=== PATIENT | female | born 1995 | race Caucasian/White ===

== ENCOUNTER 2023-11-04 10:07 | Observation (INO) | payer SELFPAY ==
[~2023-11-04] VITALS: Ht 157.5 cm; Wt 89.6 kg
[2023-11-04] VITALS (15 sets, daily range): BP systolic 100–156; BP diastolic 52–87; PULSE 62–120; TEMP 98–98.9
[~2023-11-04 10:07] MED LIST: NEXPLANON68 MG ID; NORCO 325 MG-51 TAB PO; ZOFRAN ODT4 MG PO
[2023-11-04] MEDS ORDERED: NS 1,000 ML IV SCH (10:45)
[2023-11-04] MEDS ORDERED: Ondansetron 4 MG/2 ML VIAL IV PRN ×2 (10:45→16:30)
[2023-11-04] MEDS ORDERED: HYDROmorphone 0.5 MG/0.5 ML SYRINGE IV PRN (10:45)
--- NOTE | 2023-11-04 11:42 | NUR ---
PATIENT BROUGHT TO FLOOR AT APPROXIMATELY 1015. IV TO LEFT AC INT AND FLUSHES WELL. PATIENT REPORTS EMS RIDE WAS "IZAIAH" AND NEEDED PAIN MEDICATION, REPORTS PAIN /. INTAKE PERFORMED. URINE OBTAINED FOR HCG. PATIENT'S MOTHER IN THE ROOM. PATIENT REPORTS SHE HAS BEEN NPO ALL DAY WITH THE EXCEPTION OF SIPS OF WATER IN THE AM. NO FURTHER NEEDS. CALL LIGHT IN REACH.
[2023-11-04] MEDS ORDERED: Potassium Chloride 100 ML IV SCH (12:15)
[2023-11-04] MEDS ORDERED: *Potassium Replacement Protocol MC SCH (12:15)
[2023-11-04] MEDS ORDERED: LR 1,000 ML IV SCH (12:45)
[2023-11-04] MEDS ORDERED: Famotidine 20 MG TAB PO SCH (14:00)
[2023-11-04] MEDS ORDERED: Meclizine 25 MG TAB PO SCH (14:00)
--- NOTE | 2023-11-04 15:44 | NUR ---
PATIENT OFF OF FLOOR FOR SURGERY
[2023-11-04] MEDS ORDERED: fentaNYL 50 MCG/ML 2 ML VIAL ONE ×2 (15:46→16:26)
[2023-11-04] MEDS ORDERED: Rocuronium 50 MG/5 ML Multi-Dose VIAL ONE (15:46)
[2023-11-04] MEDS ORDERED: Lidocaine PF 2% (20 MG/ML) 5 ML VIAL ONE (15:47)
[2023-11-04] MEDS ORDERED: NS 10 ML IV ONE (15:48)
[2023-11-04] MEDS ORDERED: Ondansetron 4 MG/2 ML VIAL ONE (15:48)
[2023-11-04] MEDS ORDERED: dexAMETHasone 10 MG/ML VIAL ONE ×2 (15:48)
[2023-11-04] MEDS ORDERED: Glycopyrrolate 0.2 MG/ML 1 ML VIAL ONE (15:48)
[2023-11-04] MEDS ORDERED: Ketorolac 30 MG/ML VIAL ONE (15:48)
[2023-11-04] MEDS ORDERED: BUPivacaine PF 0.5% w EPI (1:200,000) 10 ML VIAL IJ ONE (16:18)
[2023-11-04] MEDS ORDERED: droPERidol 2.5 MG/ML 2 ML VIAL IV PRN (16:30)
[2023-11-04] MEDS ORDERED: fentaNYL 50 MCG/ML 1 ML SYRINGE/VIAL [PACU/SDC ONLY] IV PRN (16:30)
[2023-11-04] MEDS ORDERED: HYDROmorphone 1 MG/1 ML SYRINGE [PACU/SDC ONLY] IV PRN (16:30)
[2023-11-04] MEDS ORDERED: Iohexol 350 - 100 ML VIAL BILE DUCT ONE (17:07)
--- NOTE | 2023-11-04 18:27 | NUR ---
PATIENT BROUGHT TO FLOOR AT APPROXIMATELY 1815. PATIENT DENIES ANY PAIN. LAPS X3 WITH BANDAIDS. IV FLUIDS INFUSING INTO LEFT AC WITH K+ REPLACING, TWO MORE BAGS TO HANG FOR TONIGHT. PATIENT ON A CLEAR LIQUID DIET FOR TONIGHT AND NPO AFTER MIDNIGHT. NO FURTHER NEEDS. CALL LIGHT IN REACH.
--- NOTE | 2023-11-04 19:00 | NUR ---
RECEIVED CHANGE OF SHIFT REPORT FROM DAY SHIFT NURSE. PATIENT UP INDEPENDENTLY IN ROOM WITH NO REPORTED CONCERNS OR PROBLEMS. IV FLUIDS INFUSING WITH NO PRO BLEMS AND PATIENT ON ROOM AIR.
--- NOTE | 2023-11-04 22:27 | NUR ---
DR GARZA ORDERED FOR "ROUTINE ERCP ORDERS" TO BE ENTERED FOR PATIENT, PROCEDURE TENTATIVELY PLANNED FOR 1400, TO INFORM/GET CONSENT FOR ANESTHESIA AND TO INFORM ENDOSCOPY IN THE AM, MAKE PATIENT NPO AFTER MIDNIGHT.
[2023-11-05] VITALS (15 sets, daily range): BP systolic 110–139; BP diastolic 74–87; PULSE 56–83; TEMP 98–98.5
[2023-11-05] MEDS ORDERED: Potassium Chloride 100 ML IV SCH ×2 (01:45→08:45)
--- NOTE | 2023-11-05 07:30 | NUR ---
CHANGE OF SHIFT REPORT GIVEN TO DAY SHIFT NURSENITISH.
--- NOTE | 2023-11-05 09:01 | NUR ---
Pt having complaints of pain. She did rate it 6/10 during shift change. Pt had recently had pain medication, she understood it was too soon to get it again. Reviewed plan of care in regards to the ERCP and diet. Pt did then go for a walk and had increase in pain. Pt was then able to get pain medication in which I did get it for her. No other needs, will continue to monitor
[2023-11-05] MEDS ORDERED: LR 1,000 ML IV SCH (10:00)
--- NOTE | 2023-11-05 10:30 | NUR ---
Pt still struggling with pain/nausea, she is somewhat tearful regarding this. Discussed medications with her, no other needs at this time
--- NOTE | 2023-11-05 11:00 | NUR ---
Pt reports feeling much better at this time. She appears to be feeling better too. She stated Dr Reeder did come see her but she was in the restroom. Explained that he had to leave the floor but that he would be back. No other needs at this time
[2023-11-05] MEDS ORDERED: fentaNYL 50 MCG/ML 2 ML VIAL ONE (12:58)
[2023-11-05] MEDS ORDERED: Lidocaine PF 2% (20 MG/ML) 5 ML VIAL ONE (12:58)
--- NOTE | 2023-11-05 13:45 | NUR ---
Pt off the floor for ERCP
[2023-11-05] MEDS ORDERED: Iohexol 350 - 100 ML VIAL BILE DUCT ONE (14:14)
--- NOTE | 2023-11-05 14:40 | NUR ---
Environmental Services Specialist and SW student attempted to meet with patient who was in surgery. SW will follow up at a later time.
--- NOTE | 2023-11-05 15:00 | NUR ---
Pt has returned from ERCP. She is doing okay, reports pain is just tolerable. She states she feels she is having some gas pains. Encouraged walking. Discussed post ERCP orders at this time
[2023-11-05] MEDS ORDERED: Acetaminophen 500 MG TAB PO PRN (16:00)
[2023-11-05] MEDS ORDERED: Ibuprofen 400 MG TAB PO PRN (16:00)
--- NOTE | 2023-11-05 16:30 | NUR ---
Pt doing okay. She has been up walking in the halls. Discussed ordering something to eat and would bring in pain medication. Discussed options, wanting motrin. No needs at this time, informed her to let me know when she gets her food
--- NOTE | 2023-11-05 19:00 | NUR ---
RECEIVED CHANGE OF SHIFT REPORT FROM DAY SHIFT NURSE.
--- NOTE | 2023-11-05 19:30 | NUR ---
Updated Dr Reeder on pt. Pt was no able to eat very much and is now complaining of feeling nauseated. PRN zofran to be given. Pts mom has been with her this afternoon/evening
--- NOTE | 2023-11-05 19:48 | NUR ---
COMPLAINED OF NAUSEA, SEE MAR FOR ZOFRAN IV GIVEN. KPAD SET UP AND PLACED ON BED FOR PATIENT TO PUT TO BACK FOR COMPLAINT OF GAS PAIN. NO OTHER NEEDS REPORTED AT THIS TIME.
--- NOTE | 2023-11-05 20:15 | NUR ---
PATIENT COMPLAINING STILL HAS NAUSEA, PATIENT PUTTING HER FINGER TO BACK TO THROAT TO CAUSE EMESIS OF FROTHY MUCOUS TO COME UP. INFORMED DR PEÑA FOR DR MEDINA OF PATIENT'S CONTINUED COMPLAINT OF NAUSEA. ORDERS GIVEN FOR PHENERGAN 12.5 IV Q6H PRN NAUSEA AT THIS TIME.
--- NOTE | 2023-11-05 20:35 | NUR ---
Unable to order IV phenergan due to shortage. Spoke with Dr Connors and new orders received for reglan instead. Order placed and report given to azam Nugent RN.
--- NOTE | 2023-11-05 21:51 | NUR ---
PATIENT CONTINUES TO COMPLAIN OF NAUSEA, SEE MAR FOR REGLAN IV GIVEN. PATIENT ALSO ASKING FOR PAIN MEDS FOR LEVEL 8/10 GAMAL UPPER ABD DISCOMFORT DUE TO FREQUENT HEAVING FROM EMESIS AND DRY HEAVES AT TIME. REPORTED IS STARTING TO PASS LIGHT GREEN COLORING OF EMESIS.
[2023-11-05] MEDS ORDERED: Melatonin 3 MG TAB PO PRN (23:00)
--- NOTE | 2023-11-05 23:32 | NUR ---
PATIENT REPORTED FEELING "A LITTLE NAUSEOUS...LET'S JUST WAIT THOUGH" WHEN OFFERED TO HAVE ZOFRAN IV, PATIENT TOOK ORAL MELATONIN REQUEST.
[2023-11-06 00:45] VITALS: BP 145/85; PULSE 72; TEMP 98.4
[2023-11-06 01:00] VITALS: BP_SYST 145
[2023-11-06 04:15] VITALS: BP 132/85; PULSE 84; TEMP 99
[2023-11-06 05:00] VITALS: BP_SYST 132
--- NOTE | 2023-11-06 05:32 | NUR ---
REPORTS FEELING "REAL NAUSEATED". SEE MAR FOR ZOFRAN IV GIVEN. NO OTHER NEEDS REPORTED AT THIS TIME.
[2023-11-06 07:45] VITALS: BP 143/85; PULSE 90; TEMP 98.1
[2023-11-06] MEDS ORDERED: Potassium Bicarbonate/Citrate 20 MEQ Effervescent TAB PO SCH (07:45)
--- NOTE | 2023-11-06 07:45 | NUR ---
Informed from nursing staff that the patient took a shower with IV not covered. Nursing staff informed the patient that she needs to wait for nursing staff to cover IV site to decrease risk of infection and possible loss of IV site. Patient verbalized an understanding. A&OX4. VSS. IV CDI. PAtient walking in the hallway independently. No further needs expressed. Call light within reach
--- NOTE | 2023-11-06 09:06 | NUR ---
[employer] worker met with pt during her walk in the hallway to discuss intake information. She reports to live with her minor children in [place]. She does not have a PCP and reports she has just not been seen due to no insurance. She was agreeable to information on the [facility] and was not aware of this. She states to obtain medications from [facility] with some difficulties due to no insurance. She reports to use [facility] and this does help her. SW provided information on coupons/samples, and the $4 medication list if this applies. She verbalized understanding. She reports to be independent with ADLS, as witnessed and uses no DME. She does not have a DPOA-HC and reports her father, Dandy [phone] is her contact. Pt was agreeable to both parents being NOK. SW left PCP list and [facility] new patient forms in her room. She was aware of this. KARLIE notified financial team that pt is a self pay. Discharge Plan: home
--- NOTE | 2023-11-06 10:16 | NUR ---
Discharge paperwork reviewed with the patient. Patient verbalized an understanding to follow doctors orders. IV removed, tip intact. Gauze and coban applied. PAtient calling for a ride and getting dressed
--- NOTE | 2023-11-06 11:04 | NUR ---
Patient taken by wheelchair to awaiting vehicle. No further needs expressed
== END 2023-11-06 11:05 | disposition home or self-care (01) ==
LOC: MEDICAL 10:07 → SURG 10:22
PROVIDERS: ADMIT Surgery
DX: K80.67 Calculus of gallbladder and bile duct with acute and chronic cholecystitis with obstruction (principal); E87.6 Hypokalemia; R94.5 Abnormal results of liver function studies; E66.8 Other obesity; Z68.36 Body mass index [BMI] 36.0-36.9, adult; Z87.891 Personal history of nicotine dependence
CPT/HCPCS: C1769; G0378; G0379; J0690; J0744; J1100; J1170; J1885; J2405; J2704; J2765; J3010; J3480; J7030; J7120; Q9967